=== PATIENT | female | born 1955 | race Caucasian/White ===

== ENCOUNTER → 2016-11-10 | Outpatient (CLI) | payer OTHER ==
[2016-11-10 09:30] LABS: Cholesterol 254 mg/dL (<200); HDL Cholesterol 104 mg/dL (40-60); Triglycerides 98 mg/dL (<150)
== END | disposition home or self-care (01) ==
LOC: LABWHC1 08:58
PROVIDERS: ATTEND Obstetrics & Gynecology
DX: Z13.220 Encounter for screening for lipoid disorders (principal)
CPT/HCPCS: 36415; 80061

== ENCOUNTER 2017-07-30 12:10 | Day surgery (SDC) | payer OTHER ==
[2017-07-24 10:54] VITALS: BMI 21.2
[~2017-07-30 12:10] MED LIST: LACTATED RINGERS 1,000 ML IV SCH; LIDOCAINE 1% 20 ML VIAL (10MG/ML) FOR IV START INTRADERMA PRN
[2017-07-30 12:45] VITALS: TEMP 97.4
[2017-07-30] MEDS ORDERED: GLYCOPYRROLATE 0.2 MG/ML 2 ML VIAL ONE (13:34)
[2017-07-30] MEDS ORDERED: PROPOFOL 10 MG/ML 20 ML VIAL IV ONE (13:34)
--- NOTE | 2017-07-30 14:06 | P.PCN ---
Date of Procedure: 07/30/17 Procedure(s) Performed: procedure: Total colonoscopy. Preoperative diagnosis: Screening for neoplasia. Postoperative diagnosis: Mild diverticulosis with no evidence of acute diverticulitis, strictures, polyps or cancer. Preparation: HalfLytely prep. Sedation: Was provided by anesthesia. Brief clinical history: The patient is a 61-year-old female who was scheduled for this evaluation because of family history of colon cancer. Her last exam was in January 2011. At this time, she has no abdominal complaints, bleeding or anemia. Procedure: With the patient on her left lateral decubitus position and after informed consent and adequate sedation, the perianal area was inspected and it did not show any fissures or fistulas. There were no masses felt on digital rectal examination. The Olympus CFQ 160L video colonoscope was then inserted in the rectum in the usual fashion and advanced to the cecum. There was occasional rare, small diverticular orifice seen in the sigmoid and on the right side with no evidence of acute diverticulitis or strictures.no polyps or tumors were seen. The mucosa appeared healthy. I retroflexed the endoscope in the rectum before the endoscope was withdrawn. The patient tolerated the procedure well. Plan: The patient was reassured. Discussed dietary measures. She will follow- up with you as planned and with her history I am recommending repeat exam in 5 years.
[2017-07-30 14:07] VITALS: RESP 16
[2017-07-30 14:24] VITALS: BP 137/75; PULSE 77
== END 2017-07-30 14:39 | disposition home or self-care (01) ==
LOC: ORWHC2ENDO 12:10
DX: Z12.11 Encounter for screening for malignant neoplasm of colon (principal); K57.30 Diverticulosis of large intestine without perforation or abscess without bleeding; F39 Unspecified mood [affective] disorder; Z80.0 Family history of malignant neoplasm of digestive organs; Z88.0 Allergy status to penicillin; Z88.5 Allergy status to narcotic agent; Z79.899 Other long term (current) drug therapy
CPT/HCPCS: G0105; J2704

== ENCOUNTER → 2017-11-07 | Outpatient (CLI) | payer OTHER ==
[2017-11-07 08:24] LABS: T4, Free (Free Thyroxine) 0.86 ng/dL (0.78-2.19)
== END | disposition home or self-care (01) ==
LOC: LABWHC1 06:56
PROVIDERS: ATTEND Obstetrics & Gynecology
DX: E78.4 Other hyperlipidemia (principal)
CPT/HCPCS: 36415; 80061; 84439; 84443

== ENCOUNTER → 2017-12-17 | Outpatient (CLI) | payer OTHER ==
--- NOTE | 2017-12-18 13:49 | MM ---
Reason for exam: screening (asymptomatic). Last mammogram was performed 1 year and 2 months ago. History: Patient is postmenopausal. Family history of breast cancer in paternal grandmother. Physical Findings: A clinical breast exam by your physician is recommended on an annual basis and results should be correlated with mammographic findings. MG 3D Screening Mammo W/Cad Bilateral CC and MLO view(s) were taken. Prior study comparison: October 23, 2016, mammogram, performed at [facility]. September 09, 2015, mammogram, performed at [facility]. September 07, 2015, mammogram, performed at [facility]. The breast tissue is heterogeneously dense. This may lower the sensitivity of mammography. No suspicious abnormality. No significant changes when compared with prior studies. ASSESSMENT: Negative, BI-RAD 1 RECOMMENDATION: Routine screening mammogram of both breasts in 1 year.
== END | disposition home or self-care (01) ==
LOC: RADMAMWWP 13:51
PROVIDERS: ATTEND Obstetrics & Gynecology
DX: Z12.31 Encounter for screening mammogram for malignant neoplasm of breast (principal); Z80.3 Family history of malignant neoplasm of breast
CPT/HCPCS: 77063; 77067

== ENCOUNTER → 2019-03-07 | Outpatient (CLI) | payer OTHER ==
--- NOTE | 2019-03-07 16:01 | BD ---
EXAMINATION TYPE: Axial Bone Density DATE OF EXAM: 03/07/2019 COMPARISON: NONE CLINICAL HISTORY: 63 YR OLD FEMALE....ICD-10 CODE: N95.1 POST MENOPAUSAL SYMPTOMS Height: 65 Weight: 131 FRAX RISK QUESTIONS: Glucocorticoids (More than 3mos): LIGHT ONE, FLONASE (Ex: prednisone, prednisolone, methylprednisolone, dexamethasone, and hydrocortisone). Secondary Osteoporosis: YES 3. Menopause before 45: YES AT AGE 41 RISK FACTORS HISTORY OF: History of Wrist Fracture: LT ARM A CHILD Active: VERY Postmenopausal woman: YES AT AGE 41 YRS OLD MEDICATIONS: Prednisone or other steroids: FLONASE NASAL SPRAY Osteoporosis Medications: STOPPED ACTENOL 5 YRS AGO Additional Medications: ZOLOFT, VIT D AND CALCIUM Additional History: NOTHING ADDITIONAL TO NOTE HERE EXAM MEASUREMENTS: Bone mineral densitometry was performed using the [employer] System. Bone mineral density as measured about the Lumbar spine is: ----- L1-L4(G/cm2): 1.215 T Score Values are as follows: ----- L1: 0.7 ----- L2: 0.9 ----- L3: 0.5 ----- L4: -0.7 ----- L1-L4: 0.3 Bone mineral density FIRST DEXA SCAN AT [facility] Bone mineral density about the R hip (g/cm2): 0.900 Bone mineral density about the L hip (g/cm2): 0.877 T Score values are as follows: -----R Neck: -1.3 -----L Neck: -1.5 -----R Total: -0.9 -----L Total: -1.0 Bone mineral density FIRST DEXA AT [facility] FRAX%s: THERE IS A 12.9% CHANCE FOR A MAJOR OSTEOPOROTIC FX AND A 1.6% FOR HIP......PROBABILITY FO R FX IN 10 YRS TIME IMPRESSION: Osteopenia (T Score between -2.5 and -1). There is slightly increased risk of fracture and the patient may be considered for treatment. Re-Screen 2-5 years. NOTE: T-SCORE=SD OF THE YOUNG ADULT MEAN.
--- NOTE | 2019-03-11 08:14 | MM ---
Reason for exam: screening (asymptomatic). Last mammogram was performed 1 year and 3 months ago. History: Patient is postmenopausal and history of other cancer. Family history of breast cancer in paternal grandmother. Physical Findings: A clinical breast exam by your physician is recommended on an annual basis and results should be correlated with mammographic findings. MG 3D Screening Mammo W/Cad Bilateral CC and MLO view(s) were taken. Prior study comparison: December 17, 2017, bilateral MG 3d screening mammo w/cad. October 23, 2016, mammogram, performed at [facility]. The breast tissue is heterogeneously dense. This may lower the sensitivity of mammography. No significant changes when compared with prior studies. ASSESSMENT: Benign, BI-RAD 2 RECOMMENDATION: Routine screening mammogram of both breasts in 1 year.
== END | disposition home or self-care (01) ==
LOC: RADMAMWWP 09:29
PROVIDERS: ATTEND Obstetrics & Gynecology
DX: Z12.31 Encounter for screening mammogram for malignant neoplasm of breast (principal); M85.851 Other specified disorders of bone density and structure, right thigh; M85.852 Other specified disorders of bone density and structure, left thigh
CPT/HCPCS: 77063; 77067; 77080

== ENCOUNTER → 2020-05-05 | Outpatient (CLI) | payer MEDICARE ==
--- NOTE | 2020-05-07 10:28 | MM ---
Reason for exam: screening (asymptomatic). Last mammogram was performed 1 year and 2 months ago. History: Patient is postmenopausal and history of other cancer. Family history of breast cancer in paternal grandmother. Physical Findings: A clinical breast exam by your physician is recommended on an annual basis and results should be correlated with mammographic findings. MG 3D Screening Mammo W/Cad Bilateral CC and MLO view(s) were taken. Prior study comparison: March 07, 2019, bilateral MG 3d screening mammo w/cad. December 17, 2017, bilateral MG 3d screening mammo w/cad. The breast tissue is heterogeneously dense. This may lower the sensitivity of mammography. No significant changes when compared with prior studies. ASSESSMENT: Negative, BI-RAD 1 RECOMMENDATION: Routine screening mammogram of both breasts in 1 year.
== END | disposition home or self-care (01) ==
LOC: RADMAMWWP 13:26
PROVIDERS: ATTEND Obstetrics & Gynecology
DX: Z12.31 Encounter for screening mammogram for malignant neoplasm of breast (principal)
CPT/HCPCS: 77063; 77067

== ENCOUNTER → 2021-02-25 | Day surgery (SDC) | payer MEDICARE ==
[2021-02-22 09:54] VITALS: BMI 22.1
[~2021-02-25] MED LIST changes: -LACTATED RINGERS 1,000 ML IV SCH; +LIDOCAINE 1% (10MG/ML) FOR IV START INTRADERMA PRN; -LIDOCAINE 1% 20 ML VIAL (10MG/ML) FOR IV START INTRADERMA PRN; +PROPOFOL 10 MG/ML 20 ML VIAL IV ONE
[2021-02-25 13:02] VITALS: TEMP 98.4
[2021-02-25] MEDS: LACTATED RINGERS 1,000 ML IV SCH ×2 (13:12→13:25)
--- NOTE | 2021-02-25 13:49 | P.PCN ---
Date of Procedure: 02/25/21 Procedure(s) Performed: BRIEF HISTORY: Patient is a 65-year-old pleasant white female scheduled for an elective colonoscopy as a part of screening for colorectal neoplasia. She has family history of colon cancer diagnosed in grandmother. PROCEDURE PERFORMED: Colonoscopy with biopsy. PREOPERATIVE DIAGNOSIS: Screening for colon cancer. IV sedation per Anesthesia. PROCEDURE: After informed consent was obtained, the patient, was brought into the endoscopy unit. IV sedation was administered by Anesthesia under continuous monitoring. Digital rectal examination was normal. Initially the Olympus CF-160 flexible video colonoscope was then inserted in the rectum, gradually advanced into the cecum without any difficulty. Careful examination was performed as the scope was gradually being withdrawn. Ileocecal valve and the appendiceal orifice were visualized and appeared normal. Prep was excellent. Mucosa of the cecum, ascending colon, transverse colon, descending colon appeared normal. In the sigmoid colon there was a 3 mm polyp that was removed by cold biopsy. Scattered sigmoid diverticulosis seen. Rest of the, sigmoid colon, and rectum appeared normal. Retroflexion was performed in the rectum and no lesions were seen. The patient tolerated the procedure well. IMPRESSION: 3 mm sigmoid: Polyp status post removal by biopsy Scattered sigmoid diverticulosis RECOMMENDATIONS: Findings of this examination were discussed with the patient as well as her family. She was advised to follow with the biopsy results. If the biopsy shows an adenoma she can have a repeat colonoscopy in 5 years.
[2021-02-25 13:53] VITALS: BP 99/64; PULSE 72; RESP 17
== END ==
LOC: ORWHC2ENDO 11:49
PROVIDERS: ATTEND Internal Medicine Gastroenterology
DX: Z12.11 Encounter for screening for malignant neoplasm of colon (principal); Z80.0 Family history of malignant neoplasm of digestive organs; K57.90 Diverticulosis of intestine, part unspecified, without perforation or abscess without bleeding; D36.9 Benign neoplasm, unspecified site; E78.5 Hyperlipidemia, unspecified; Z79.899 Other long term (current) drug therapy; Z88.5 Allergy status to narcotic agent; Z88.0 Allergy status to penicillin
CPT/HCPCS: 45380; 88305; J2704

== ENCOUNTER → 2021-05-11 | Outpatient (CLI) | payer MEDICARE ==
--- NOTE | 2021-05-13 14:17 | MM ---
Reason for exam: screening (asymptomatic). Last mammogram was performed 1 year ago. History: Patient is postmenopausal and history of other cancer. Family history of breast cancer in paternal grandmother. Physical Findings: A clinical breast exam by your physician is recommended on an annual basis and results should be correlated with mammographic findings. MG 3D Screening Mammo W/Cad Bilateral CC and MLO view(s) were taken. Prior study comparison: May 05, 2020, bilateral MG 3d screening mammo w/cad. March 07, 2019, bilateral MG 3d screening mammo w/cad. December 17, 2017, bilateral MG 3d screening mammo w/cad. October 23, 2016, mammogram, performed at [facility]. The breast tissue is heterogeneously dense. This may lower the sensitivity of mammography. No significant changes when compared with prior studies. ASSESSMENT: Negative, BI-RAD 1 RECOMMENDATION: Routine screening mammogram of both breasts in 1 year. Patient should continue monthly self breast exams. A negative report should not preclude additional follow up of suspicious palpable abnormalities.
== END | disposition home or self-care (01) ==
LOC: RADMAMWWP 12:26
PROVIDERS: ATTEND Obstetrics & Gynecology
DX: Z12.31 Encounter for screening mammogram for malignant neoplasm of breast (principal); Z78.0 Asymptomatic menopausal state; Z80.3 Family history of malignant neoplasm of breast
CPT/HCPCS: 77063; 77067

== ENCOUNTER → 2022-05-29 | Outpatient (CLI) | payer MEDICARE ==
--- NOTE | 2022-05-29 17:13 | BD ---
EXAMINATION TYPE: Axial Bone Density DATE OF EXAM: 05/29/2022 COMPARISON: NONE CLINICAL HISTORY: 66 years year old Female. ICD-10 CODE: Z12.31 SCREENING M85.88 DISORDER OF BONE Height: 65 Weight: 128 FRAX RISK QUESTIONS: Alcohol (3 or more units per day): no Family History (Parent hip fracture): no Glucocorticoids (More than 3mos): no (Ex: prednisone, prednisolone, methylprednisolone, dexamethasone, and hydrocortisone). History of Fracture in Adulthood: no Secondary Osteoporosis: 1. Type 1 Diabetes: no 2. Hyperthyroidism: no 3. Menopause before 45: yes 4. Malnutrition: no 5. Chronic liver disease: no Rheumatoid Arthritis: no Current Tobacco Use: no RISK FACTORS HISTORY OF: History of Wrist Fracture: left When: age 9 Surgery to Spine/Hip(right/left)/Wrist (right/left): no Family History of Osteoporosis: yes Active: yes Diet low in dairy products/other sources of calcium: no Postmenopausal woman: yes Lost more than 2 inches in height since high school: no MEDICATIONS: Additional History: EXAM MEASUREMENTS: Bone mineral densitometry was performed using the [employer] System. Bone mineral density as measured about the Lumbar spine is: ----- L1-L4(G/cm2): 1.169 T Score Values are as follows: ----- L1: 0.2 ----- L2: 0.1 ----- L3: 0.3 ----- L4: -0.9 ----- L1-L4: -0.1 Bone mineral density : previous unavailable Bone mineral density about the R hip (g/cm2): 0.827 Bone mineral density about the L hip (g/cm2): 0.831 T Score values are as follows: -----R Neck: -1.5 -----L Neck: -1.5 -----R Total: -1.1 -----L Total: -0.8 Bone mineral density : previous unavailable FRAX%s: The graph provided illustrates a 8.6% chance for a major osteoporotic fx and a 1.1% chance fo r the hips probability for fx in 10 years time. IMPRESSION: Osteopenia (T Score between -2.5 and -1). There is slightly increased risk of fracture and the patient may be considered for treatment. Re-Screen 2-5 years. NOTE: T-SCORE=SD OF THE YOUNG ADULT MEAN.
--- NOTE | 2022-05-30 17:51 | MM ---
Reason for Exam: Screening (asymptomatic). Last screening mammogram was performed 12 month(s) ago. Patient History: Menarche at age 12. First Full-Term at age 21. Postmenopausal. Other cancer. Paternal grandmother had breast cancer. Risk Values: [place] 5 year model risk: 1.5%. NCI Lifetime model risk: 5.2%. Prior Study Comparison: 03/07/2019 Bilateral Screening Mammogram, [facility]. 05/05/2020 Bilateral Screening Mammogram, [facility]. 05/11/2021 Bilateral Screening Mammogram, [facility]. Tissue Density: The breast tissue is heterogeneously dense. This may lower the sensitivity of mammography. Findings: Analyzed By CAD. There is no suspicious group of microcalcifications or new suspicious mass in either breast. Overall Assessment: Negative, BI-RAD 1 Management: Screening Mammogram of both breasts in 1 year. 1. Patient should continue monthly self breast exams. 2. A clinical breast exam by your physician is recommended on an annual basis. 3. This exam should not preclude additional follow-up of suspicious palpable abnormalities. Electronically signed and approved by: Ariel Boo M.D. Radiologist
== END | disposition home or self-care (01) ==
LOC: RADBDWWP 14:01
PROVIDERS: ATTEND Obstetrics & Gynecology
DX: Z12.31 Encounter for screening mammogram for malignant neoplasm of breast (principal); M85.89 Other specified disorders of bone density and structure, multiple sites; Z78.0 Asymptomatic menopausal state; Z80.3 Family history of malignant neoplasm of breast
CPT/HCPCS: 77063; 77067; 77080

== ENCOUNTER → 2024-06-03 | Outpatient (CLI) | payer MEDICARE ==
[2024-06-03 08:56] VITALS: BP 132/77; PULSE 77; RESP 17; TEMP 98
--- NOTE | 2024-06-03 10:02 | P.HPOB ---
History of Present Illness H&P Date: 06/03/24 Chief Complaint: The patient is here for her routine gynecologic exam and ma mmogram. This is a 68-year-old G1, P1 with an LMP of 2000. The patient is here to establish with this office. It has been about 1 year since her last visit with Dr. Locke, who previously provided her gynecologic care. She states Dr. Locke had prescribed Zoloft and Xanax for anxiety and depression related to her menopausal change. She uses the Xanax very sparingly and takes the Zoloft daily. She is without gynecologic complaints and denies any postmenopausal bleeding. Dr. Locke's records from the past 3 years was brought by the patient. She had negative Pap smears on 01/29/2019 and 03/31/2021. She had seen Dr. Locke regularly and before seeing Dr. Locke, she previously saw Dr. Mccloud. Review of Systems The patient states she has lost about 8 pounds over the past 18 months and this has been intentional. She denies respiratory, or cardiac problems. GI: Occasional intestinal gassy feelings when she eats too much gluten. Past Medical History Past Medical History: No Reported History Additional Past Medical History / Comment(s): Hypoglycemia, "borderline high cholesterol", varicose veins. Environmental allergies, restless leg syndrome. Osteopenia. PAST [employer] AGENT HISTORY: She has no history of STDs. Hx Endometriosis. History of Any Multi-Drug Resistant Organisms: None Reported Past Surgical History: Appendectomy, Tubal Ligation Additional Past Surgical History / Comment(s): Laparotomy for Endometriosis with left ovarian cystectomy, Colonoscopy 2020(next after 5yr). Past Anesthesia/Blood Transfusion Reactions: No Reported Reaction Past Psychological History: Anxiety, Depression Smoking Status: Never smoker Past Alcohol Use History: Daily (Half a glass of wine daily.) Additional Past Alcohol Use History / Comment(s): 1 glass of wine per day. Past Drug Use History: None Reported Additional History: She has been a since 2017. She has been with her current partner since 2018 and they live together. She is retired. - Past Family History Mother Family Medical History: Hyperlipidemia, Renal Disease Additional Family Medical History / Comment(s): . Maternal grandmother had colon cancer. Father Family Medical History: CVA/TIA, Hyperlipidemia Additional Family Medical History / Comment(s): . Paternal grandmother had breast cancer. Brother(s) Family Medical History: Cancer Additional Family Medical History / Comment(s): Lymphoma. . Medications and Allergies Home Medications Medication Instructions Recorded Confirmed Type Fluticasone Nasal [place] [Flonase 2 spr EA NOSTRIL DAILY 07/24/17 06/03/24 History Nasal [place]] Multivitamins, Thera [Multivitamin 1 tab PO DAILY 07/24/17 06/03/24 History (formulary)] Calcium Carbonate [Calcium] 600 mg PO DAILY 02/22/21 06/03/24 History Calcium/Vitamin D3 1 tab PO DAILY 02/22/21 06/03/24 History Cyanocobalamin (Vitamin B-12) 1,000 mcg PO DAILY 02/22/21 06/03/24 History [Vitamin B-12] Garlic 1 each PO DAILY 02/22/21 06/03/24 History L.acidoph,Paracasei, B.lactis 1 each PO DAILY 02/22/21 06/03/24 History [Probiotic] Niacinamide 500 mg PO DAILY 02/22/21 06/03/24 History Sertraline HCl [Zoloft] 75 mg PO HS 02/22/21 06/03/24 History ALPRAZolam [Xanax] 0.25 mg PO DAILY 06/03/24 06/03/24 History Ascorbic Acid [Vitamin C] 500 mg PO DAILY 06/03/24 06/03/24 History Cetirizine HCl [Zyrtec] 10 mg PO DAILY 06/03/24 06/03/24 History Magnesium Oxide [Magnesium] 500 mg PO DAILY 06/03/24 06/03/24 History [place]-3/Dha/Epa/Fish Oil [[place]-3 1 cap PO DAILY 06/03/24 06/03/24 History Fish Oil 1,000 mg Sfgl] Pseudoephedrine [Sudafed] 30 mg PO DAILY 06/03/24 06/03/24 History Allergies Allergy/AdvReac Type Severity Reaction Status Date / Time Penicillins Allergy rash,bliste Verified 06/03/24 08:48 rs codeine AdvReac paranoia Verified 06/03/24 08:48 Exam Vital Signs Temp Pulse Resp BP Pulse Ox 06/03/24 08:51 98 F 77 17 132/77 97 Intake and Output 06/02/24 06/03/24 06/03/24 22:59 06:59 14:59 Other: Weight 58.967 kg Height 5 feet 6 inches, weight 130 pounds, BMI 21.0. This is a well-developed well-nourished white female who is alert and oriented times 3 in no acute distress. HEENT: Within normal limits. NECK: Supple without mass or thyromegaly. CHEST AND LUNGS: Clear to auscultation. HEART: Regular rate and rhythm. BREASTS: Are without mass or discharge. AXILLARY EXAM: Negative for adenopathy. BACK: Negative for CVA tenderness. ABDOMEN: Soft, nontender, without palpable masses. PELVIC EXAM: Normal external genitalia with mild atrophy. Cervix and vagina appear normal with mild to moderate atrophy. Cervix is stenotic secondary to atrophy. there is no unusual discharge. There is no evidence of prolapse. The uterus is midposition, nongravid size and nontender. There are no palpable adnexal masses or tenderness. RECTAL EXAM: Rectovaginal exam is negative for mass or tenderness and is n egative for occult blood. EXTREMITIES: Nontender. IMPRESSION: 1. 68-year-old menopausal female with normal gynecologic exam. 2. History of osteopenia. 3. Previous left ovarian cystectomy for benign reasons. PLAN: 1. Pap smear was performed. Only her last 2 Pap smear results are seen in her limited records from Dr. Locke's office. She had negative Pap smears in 2019 and 2020. She states she has been regularly screened and has not had any history of cervical neoplasia. If this Pap smear is negative today, we will plan on discontinuing Pap smears. 2. Self breast awareness was discussed with the patient. We have also discussed symptoms associated with inflammatory breast cancer. 3. Screening mammogram will be done today. 4. Osteoporosis prevention was discussed. I have stressed the importance of adequate calcium, vitamin D and regular exercise. Recommended amounts of calcium and vitamin D were also discussed. Bone density test will be done today. Her last 1 was done about 2 years ago. 5. She will continue Zoloft 100 mg [address] Locke previously prescribed this for menopause related anxiety and depression. She states these have been both well-controlled with this. She will try to use lower doses gradually. She states she also uses Xanax 0.25 mg as needed. She usually only uses part of a tablet very infrequently. She is requesting that both of these be prescribed. I will prescribe these medications with refills for the upcoming year, but she will see her PCP and ask that the PCP prescribed these in the future. The electronic prescription will be sent to [facility] pharmacy on 6. She was advised to return in one year for her annual well woman exam.
--- NOTE | 2024-06-03 11:22 | BD ---
EXAMINATION TYPE: Axial Bone Density DATE OF EXAM: 06/03/2024 CLINICAL HISTORY: 68 years old Female. ICD-10 CODE: Z78.0 POST MENOPAUSAL WITHOUT HRT Height: 65 Weight: 128.4 FRAX RISK QUESTIONS: Alcohol (3 or more units per day): no Family History (Parent hip fracture): no Glucocorticoids (More than 3mos): no (Ex: prednisone, prednisolone, methylprednisolone, dexamethasone, and hydrocortisone). History of Fracture in Adulthood: no Secondary Osteoporosis: 1. Type 1 Diabetes: no 2. Hyperthyroidism: no 3. Menopause before 45: yes 4. Malnutrition: no 5. Chronic liver disease: no Rheumatoid Arthritis: no Current Tobacco Use: no RISK FACTORS HISTORY OF: Hip Fracture (Right/Left): no Spine Fracture: no History of Wrist Fracture: Lt wrist age 9 Surgery to Spine/Hip(right/left)/Wrist (right/left): no MEDICATIONS: Thyroid Medications: no Osteoporosis Medications: no EXAM MEASUREMENTS: Bone mineral densitometry was performed using the [employer] System. Bone mineral density as measured about the Lumbar spine is: ----- L1-L4(G/cm2): 1.086 T Score Values are as follows: ----- L1: 0.0 ----- L2: -0.6 ----- L3: -0.4 ----- L4: -1.8 ----- L1-L4: -0.8 Z Score Values are as follows: ----- L1: 1.8 ----- L2: 1.3 ----- L3: 1.5 ----- L4: 0.0 ----- L1-L4: 1.1 Bone mineral density has: decreased -7.1 % since study of: 05/29/2022 Bone mineral density about the R hip (g/cm2): 0.848 Bone mineral density about the L hip (g/cm2): `0.902 T Score values are as follows: -----R Neck: -1.6 -----L Neck: -1.1 -----R Total: -1.3 -----L Total: -0.8 Z Score values are as follows: -----R Neck: 0.2 -----L Neck: 0.7 -----R Total: 0.3 -----L Total: 0.8 Bone mineral density has: decreased -1.7 % since study of: 05/29/2022 FRAX%s: The graph provided illustrates a 9.2% chance for a major osteoporotic fx and a 1.5% chance fo r the hips probability for fx in 10 years time. IMPRESSION: Osteopenia (T Score between -2.5 and -1). There is slightly increased risk of fracture and the patient may be considered for treatment. Re-Screen 2-5 years. NOTE: T-SCORE=SD OF THE YOUNG ADULT MEAN. [facility], , 06/03/2024 11:20 AM
--- NOTE | 2024-06-04 09:59 | MM ---
Reason for Exam: Screening (asymptomatic). Last mammogram was performed 1 year(s) and 1 month(s) ago. Patient History: Menarche at age 12. First Full-Term at age 21. Postmenopausal. Other cancer. Paternal grandmother had breast cancer, age 75. Risk Values: Amanda 5 year model risk: 1.5%. NCI Lifetime model risk: 4.8%. Prior Study Comparison: 05/11/2021 Bilateral Screening Mammogram, [facility]. 05/29/2022 Bilateral MG 3D screening mammo w/cad, [facility]. 05/30/2023 Bilateral MG 3D screening mammo w/cad, [facility]. Tissue Density: The breasts are heterogeneously dense, which may obscure small masses. Findings: Analyzed By CAD. Right breast: There is no suspicious group of microcalcifications or new suspicious mass. Left breast: There is no suspicious group of microcalcifications or new suspicious mass. Overall Assessment: Negative, BI-RAD 1 Management: Screening Mammogram of both breasts in [address] [facility] will attempt to contact patient to return for supplemental views and ultrasound if indicated. Patient should continue monthly self-breast exams. A clinical breast exam by your physician is recommended on an annual basis. This exam should not preclude additional follow-up of suspicious palpable abnormalities. Note on Amanda scores and lifetime risk: 1. A Amanda score greater than 3% is considered moderate risk. If this is the case, consider specialist referral to assess eligibility for a risk reducing agent. 2. If overall lifetime risk for the development of breast cancer is 20% or higher, the patient may qualify for future screening with alternating mammogram and breast MRI. [facility], , 06/04/2024 9:55 AM. Electronically signed and approved by: Reuben Chapman DO
== END ==
LOC: WWCWWP 08:28
PROVIDERS: ATTEND Obstetrics & Gynecology
DX: Z12.31 Encounter for screening mammogram for malignant neoplasm of breast (principal); M81.8 Other osteoporosis without current pathological fracture; F32.A Depression, unspecified; F41.9 Anxiety disorder, unspecified; Z98.890 Other specified postprocedural states; Z78.0 Asymptomatic menopausal state; Z80.3 Family history of malignant neoplasm of breast; Z88.0 Allergy status to penicillin; Z88.5 Allergy status to narcotic agent
CPT/HCPCS: 77063; 77067; 77080